=== PATIENT | female | born 2005 | race Two or more races ===

== ENCOUNTER 2024-03-18 21:25 | Day surgery (SDC) | payer OTHER, SELFPAY ==
[~2024-03-18] VITALS: Ht 177.8 cm; Wt 107.2 kg
[2024-03-18 22:24] LABS: BASO % 0.4 % (0.0-1.0); EOS # 0.2 10^3/uL (0.0-0.5); EOS % 2.3 % (0.0-3.0); HEMOGLOBIN 12.9 g/dl (12.0-15.5); LYMPH # 3.1 10^3/uL (1.5-5.0); LYMPH % 43.6 % (24.0-44.0); MEAN CORPUSCULAR HEMOGLOBIN 30.4 pg (27.0-33.0); MEAN CORPUSCULAR HGB CONC 33.9 g/dl (32.0-36.5); MEAN CORPUSCULAR VOLUME 89.6 fl (80.0-96.0); MONO # 0.5 10^3/uL (0.0-0.8); MONO % 6.7 % (2.0-8.0); NEUTROPHILS # 3.3 10^3/uL (1.5-8.5); NEUTROPHILS % 46.7 % (36.0-66.0); PLATELET COUNT, AUTOMATED 293 10^3/uL (150-450); RED BLOOD COUNT 4.24 10^6/uL (4.00-5.40)
[2024-03-18 22:44] LABS: LIPASE 31 U/L (12-53)
[2024-03-18 22:46] LABS: ALBUMIN 3.8 G/DL (3.2-5.2); ALKALINE PHOSPHATASE 98 U/L (46-116); ALT/SGPT 73 U/L (7.0-40); AST/SGOT 39 U/L (<34); BILIRUBIN,DIRECT < 0.1 MG/DL (<0.4); BILIRUBIN,TOTAL 0.2 MG/DL (0.3-1.2); BLOOD UREA NITROGEN 19 MG/DL (9-23); CALCIUM LEVEL 9.3 MG/DL (8.5-10.1); CARBON DIOXIDE LEVEL 28 MMOL/L (20-31); CHLORIDE LEVEL 106 MMOL/L (98-107); CPK CREATINE PHOSPHOKINASE 1273 U/L (34-145); CREATININE FOR GFR 0.83 MG/DL (0.55-1.30); GLUCOSE, FASTING 145 MG/DL (60-100); SODIUM LEVEL 136 MMOL/L (136-145); TOTAL PROTEIN 7.4 G/DL (5.7-8.2)
[2024-03-18 22:47] LABS: CK-MB VALUE MASS < 1.0 NG/ML (<3.6); HCG, SERUM QUALITATIVE NEGATIVE (NEGATIVE); MB/CK RELATIVE INDEX 0.07 (< OR =4)
[2024-03-19 00:05] LABS: CK-MB VALUE MASS < 1.0 NG/ML (<3.6)
[2024-03-19 00:38] LABS: CPK CREATINE PHOSPHOKINASE 1269 U/L (34-145); MB/CK RELATIVE INDEX 0.07 (< OR =4)
[2024-03-19 01:39] LABS: ERYTHROCYTE SEDIMENTATION RATE 23 mm/hr (0-20)
[2024-03-19] MEDS: FAMOTIDINE IV BAG 20 MG in IV 1 EA IV ONE (01:48)
[2024-03-19] MEDS: ACETAMINOPHEN *IV* 1,000 MG in IV 1 EA IV ONE (01:48)
[2024-03-19] MEDS: LR 1,000 ML IV ONE (01:49)
[2024-03-19] MEDS ORDERED: IBUP-1720 PO (06:04)
[2024-03-19] MEDS ORDERED: ACET650T15 PO (06:04)
[2024-03-19] MEDS ORDERED: HOME MED LIST COMPLETE! XX SCH (06:05)
[2024-03-19 08:50] LABS: BASO # 0.1 10^3/uL (0.0-0.2); BASO % 0.7 % (0.0-1.0); EOS # 0.2 10^3/uL (0.0-0.5); EOS % 2.7 % (0.0-3.0); HEMATOCRIT 36.6 % (36.0-47.0); HEMOGLOBIN 12.3 g/dl (12.0-15.5); LYMPH # 2.7 10^3/uL (1.5-5.0); LYMPH % 39.2 % (24.0-44.0); MEAN CORPUSCULAR HEMOGLOBIN 30.3 pg (27.0-33.0); MEAN CORPUSCULAR HGB CONC 33.6 g/dl (32.0-36.5); MEAN CORPUSCULAR VOLUME 90.1 fl (80.0-96.0); MONO # 0.4 10^3/uL (0.0-0.8); MONO % 6.5 % (2.0-8.0); NEUTROPHILS # 3.5 10^3/uL (1.5-8.5); NEUTROPHILS % 50.8 % (36.0-66.0); PLATELET COUNT, AUTOMATED 273 10^3/uL (150-450); RED BLOOD COUNT 4.06 10^6/uL (4.00-5.40); WHITE BLOOD COUNT 6.8 10^3/uL (4.0-10.0)
[2024-03-19 09:10] LABS: ERYTHROCYTE SEDIMENTATION RATE 13 mm/hr (0-20)
[2024-03-19 09:17] LABS: C REACTIVE PROTEIN QUANTITATIV < 0.40 MG/DL (<1.0)
[2024-03-19 09:19] LABS: ALBUMIN 3.6 G/DL (3.2-5.2); ALKALINE PHOSPHATASE 82 U/L (46-116); ALT/SGPT 69 U/L (7.0-40); AST/SGOT 48 U/L (<34); BILIRUBIN,TOTAL 0.2 MG/DL (0.3-1.2); BLOOD UREA NITROGEN 14 MG/DL (9-23); CALCIUM LEVEL 9.3 MG/DL (8.5-10.1); CARBON DIOXIDE LEVEL 25 MMOL/L (20-31); CHLORIDE LEVEL 111 MMOL/L (98-107); CREATININE FOR GFR 0.75 MG/DL (0.55-1.30); GLUCOSE, FASTING 113 MG/DL (60-100); POTASSIUM SERUM 4.8 MMOL/L (3.5-5.1); SODIUM LEVEL 139 MMOL/L (136-145); TOTAL PROTEIN 6.9 G/DL (5.7-8.2)
[2024-03-19] MEDS: KETOROLAC 30 MG/ML 1ML VIAL IV ONE (11:10)
[2024-03-19] MEDS ORDERED: propofoL 200 MG/20 ML VIAL As Ordered ONE (11:28)
[2024-03-19] MEDS ORDERED: LIDOCAINE 2% 100MG/5ML SDV (FOR ANES.) As Ordered ONE (11:29)
[2024-03-19] MEDS ORDERED: KETOROLAC 60MG 2ML VIAL As Ordered ONE (11:29)
[2024-03-19] MEDS ORDERED: SUGAMMADEX SODIUM 500 MG/5 ML VIAL (BRIDION) As Ordered ONE (11:29)
[2024-03-19] MEDS ORDERED: ONDANSETRON 4MG 2ML VIAL As Ordered ONE (11:29)
[2024-03-19] MEDS ORDERED: ROCURONIUM BROMIDE 50MG/5ML VIAL As Ordered ONE (11:29)
[2024-03-19] MEDS ORDERED: ACETAMINOPHEN 1000MG 100ML IV BAG As Ordered ONE (11:29)
[2024-03-19] MEDS ORDERED: fentaNYL 100 MCG/2 ML INJECTION As Ordered ONE (11:30)
[2024-03-19] MEDS ORDERED: MIDAZOLAM INJ 2MG/2ML VIAL As Ordered ONE (11:30)
[2024-03-19] MEDS ORDERED: ceFAZolin SOD 1 GM in D5W MINI-BAG PLUS 50 ML IV SCH (16:00)
[2024-03-19] MEDS ORDERED: INDOCYANINE GREEN 25MG VIAL (IC-GREEN) As Ordered ONE (17:05)
[2024-03-19] MEDS ORDERED: PHENYLephrine 500MCG 5ML (100MCG/ML) SYRINGE As Ordered ONE (17:25)
[2024-03-19] MEDS: ceFAZolin 2 GM/D5W 50 ML IV BAG As Ordered ONE (17:29)
[2024-03-19] MEDS ORDERED: dexmedeTOMIDine (4MCG/ML)200MCG/50ML BTL (PRECEDEX) As Ordered ONE (17:53)
[2024-03-19] MEDS: LIDOCAINE 1% SDV 30ML VIAL As Ordered ONE (18:23)
[2024-03-19] MEDS ORDERED: MORPHINE 2 MG/ML 1ML VIAL IV PRN (18:45)
[2024-03-19] MEDS ORDERED: fentaNYL 100 MCG/2 ML INJECTION IV PRN (18:45)
[2024-03-19] MEDS: KETOROLAC 30 MG/ML 1ML VIAL IV SCH (19:00)
[2024-03-19] MEDS: HYDROMORPHONE HCL 0.5 MG/ 0.5 ML SYRINGE IV PRN (19:14)
[2024-03-19] MEDS: PROMETHAZINE 25MG/ML 1ML VIAL IV PRN (19:20)
[2024-03-19 20:10] VITALS: BP 117/63; TEMP 97.7; O2SAT 97
[2024-03-19] MEDS: PANTOPRAZOLE 40MG VIAL IV SCH (20:31)
[2024-03-19] MEDS: PERCOCET 5MG/325MG TAB PO PRN (20:32)
[2024-03-19 20:40] VITALS: BP 109/59; TEMP 97.3; O2SAT 96
[2024-03-19 21:10] VITALS: BP 103/59; TEMP 97.6; O2SAT 95
[2024-03-19 22:00] VITALS: BP 100/54; TEMP 97.3; O2SAT 97
[2024-03-19 23:00] VITALS: BP 101/55; TEMP 97.3; O2SAT 93
[2024-03-20] VITALS: BP 110/55; TEMP 97.3; O2SAT 93
[2024-03-20 00:56] VITALS: BP 117/57; TEMP 98.2; O2SAT 97
[2024-03-20] MEDS ORDERED: ceFAZolin SOD 1 GM in D5W MINI-BAG PLUS 50 ML IV SCH (02:00)
[2024-03-20 05:10] VITALS: BP 100/56; TEMP 98.2; O2SAT 96
[2024-03-20 06:59] LABS: BASO % 0.2 % (0.0-1.0); EOS % 0.1 % (0.0-3.0); HEMATOCRIT 34.4 % (36.0-47.0); HEMOGLOBIN 11.4 g/dl (12.0-15.5); MEAN CORPUSCULAR HEMOGLOBIN 29.5 pg (27.0-33.0); MEAN CORPUSCULAR HGB CONC 33.1 g/dl (32.0-36.5); MEAN CORPUSCULAR VOLUME 89.1 fl (80.0-96.0); MONO # 0.3 10^3/uL (0.0-0.8); MONO % 4.2 % (2.0-8.0); NEUTROPHILS # 5.8 10^3/uL (1.5-8.5); NEUTROPHILS % 71.1 % (36.0-66.0); PLATELET COUNT, AUTOMATED 284 10^3/uL (150-450); RED BLOOD COUNT 3.86 10^6/uL (4.00-5.40); WHITE BLOOD COUNT 8.1 10^3/uL (4.0-10.0)
[2024-03-20 07:17] LABS: CPK CREATINE PHOSPHOKINASE 779 U/L (34-145)
[2024-03-20 07:18] LABS: ALBUMIN 3.2 G/DL (3.2-5.2); ALKALINE PHOSPHATASE 69 U/L (46-116); ALT/SGPT 73 U/L (7.0-40); AST/SGOT 46 U/L (<34); BILIRUBIN,TOTAL 0.4 MG/DL (0.3-1.2); BLOOD UREA NITROGEN 13 MG/DL (9-23); CALCIUM LEVEL 8.8 MG/DL (8.5-10.1); CARBON DIOXIDE LEVEL 25 MMOL/L (20-31); CHLORIDE LEVEL 109 MMOL/L (98-107); CREATININE FOR GFR 0.76 MG/DL (0.55-1.30); GLUCOSE, FASTING 103 MG/DL (60-100); POTASSIUM SERUM 4.1 MMOL/L (3.5-5.1); SODIUM LEVEL 139 MMOL/L (136-145); TOTAL PROTEIN 6.4 G/DL (5.7-8.2)
[2024-03-20] MEDS: SIMETHICONE 80MG CHEW TAB PO PRN (07:41)
[2024-03-20 08:00] VITALS: BP 109/54; TEMP 98.7; O2SAT 97
[2024-03-20 12:00] VITALS: BP 98/54; TEMP 98.6; O2SAT 96
[2024-03-20] MEDS ORDERED: OMEP40CA4 PO (12:19)
[2024-03-20] MEDS ORDERED: PERCOCET PO (12:19)
[2024-03-20 15:40] VITALS: BP 98/55; TEMP 98.1; O2SAT 97
[2024-03-20] MEDS: PERCOCET 5MG/325MG TAB PO PRN (16:02)
== END 2024-03-20 17:45 | disposition home or self-care (01) ==
LOC: M ED 21:25 → M SDC 03-19 15:56 → M PED 03-19 20:10 → M SDC 03-20 17:45
PROVIDERS: ATTEND Surgery
DX: K81.1 Chronic cholecystitis (principal); K76.0 Fatty (change of) liver, not elsewhere classified; R16.0 Hepatomegaly, not elsewhere classified; E28.2 Polycystic ovarian syndrome; E66.9 Obesity, unspecified; Z83.79 Family history of other diseases of the digestive system
CPT/HCPCS: 36415; 47563; 64488; 71045; 76705; 80048; 80053; 80076; 82550; 82553; 83690; 84484; 84703; 85025; 85652; 86140; 88304; 93005; 96365; 96367; 96375; 96376; 99284; J0131; J0665; J0690; J1100; J1170; J1885; J2250; J2371; J2405; J2470; J2550; J3010; Q9968; S0028; S2900

== ENCOUNTER 2024-11-30 19:34 | Inpatient (IN) | payer OTHER ==
[~2024-11-30] VITALS: Ht 177.8 cm; Wt 109.1 kg
[~2024-11-30 19:34] MED LIST: ACET650T15 PO; IBUP-1720 PO; OMEP40CA4 PO; PERCOCET PO
[2024-11-30] MEDS: NS (Normal Saline) 0.9% 1,000 ML IV SCH (19:55)
[2024-11-30] MEDS: CHARCOAL ACTIVATED LIQUID 25GM/120ML BTL PO ONE (19:59)
[2024-11-30 20:21] LABS: HEMATOCRIT 38.2 % (36.0-47.0); HEMOGLOBIN 13.3 g/dl (12.0-15.5); MEAN CORPUSCULAR HEMOGLOBIN 31.2 pg (27.0-33.0); MEAN CORPUSCULAR HGB CONC 34.8 g/dl (32.0-36.5); MEAN CORPUSCULAR VOLUME 89.7 fl (80.0-96.0); PLATELET COUNT, AUTOMATED 296 10^3/uL (150-450); RED BLOOD COUNT 4.26 10^6/uL (4.00-5.40); WHITE BLOOD COUNT 6.7 10^3/uL (4.0-10.0)
[2024-11-30 20:45] LABS: ETHYL ALCOHOL (ETHANOL) < 0.003 % (0.000-0.010)
[2024-11-30 20:46] LABS: SALICYLATE LEVEL < 3.0 MG/DL (<30)
[2024-11-30 20:47] LABS: ALBUMIN 3.8 G/DL (3.2-5.2); ALKALINE PHOSPHATASE 99 U/L (35-104); ALT/SGPT 58 U/L (7.0-40); AST/SGOT 23 U/L (<34); BILIRUBIN,DIRECT < 0.1 MG/DL (<0.4); BILIRUBIN,TOTAL 0.2 MG/DL (0.3-1.2); BLOOD UREA NITROGEN 11 MG/DL (9-23); CALCIUM LEVEL 9.1 MG/DL (8.5-10.1); CARBON DIOXIDE LEVEL 25 MMOL/L (20-31); CHLORIDE LEVEL 107 MMOL/L (98-107); CREATININE FOR GFR 0.75 MG/DL (0.55-1.30); GLOMERULAR FILTRATION RATE > 90.0 (>60); GLUCOSE, FASTING 207 MG/DL (60-100); POTASSIUM SERUM 4.1 MMOL/L (3.5-5.1); SODIUM LEVEL 141 MMOL/L (136-145); TOTAL PROTEIN 7.2 G/DL (5.7-8.2)
[2024-11-30 20:49] LABS: THYROID STIMULATING HORMONE 1.279 uIU/ML (0.48-4.17)
[2024-11-30 20:56] LABS: AMPHETAMINES LEVEL URINE NEGATIVE (NEGATIVE); BARBITURATES URINE NEGATIVE (NEGATIVE); BENZODIAZEPINES URINE NEGATIVE (NEGATIVE); CANNABINOIDS URINE NEGATIVE (NEGATIVE); COCAINE METABOLITE URINE NEGATIVE (NEGATIVE); METHADONE URINE NEGATIVE (NEGATIVE); OPIATES URINE NEGATIVE (NEGATIVE); PHENCYCLIDINE URINE NEGATIVE (NEGATIVE)
[2024-11-30 21:11] LABS: HCG, SERUM QUALITATIVE NEGATIVE (NEGATIVE)
[2024-11-30] MEDS: NS (Normal Saline) 0.9% 1,000 ML IV ONE (23:57)
[2024-12-01] MEDS ORDERED: AMIT25TA19 PO (08:04)
[2024-12-01] MEDS ORDERED: OMEP40CA4 PO (08:04)
[2024-12-01] MEDS ORDERED: HOME MED LIST COMPLETE! XX SCH (08:05)
[2024-12-01] MEDS ORDERED: MOM 30ML SUSPENSION UDC PO PRN (13:55)
[2024-12-01] MEDS ORDERED: traZODone 50 MG TAB PO PRN (13:55)
[2024-12-01] MEDS ORDERED: diphenhydrAMINE 25MG CAP PO PRN (13:55)
[2024-12-01] MEDS ORDERED: MAALOX 30 ML SUSP *UDC PO PRN (13:55)
[2024-12-01] MEDS ORDERED: ACETAMINOPHEN 325 MG TAB PO PRN (13:55)
[2024-12-01 14:45] VITALS: BP 113/73; TEMP 98.2; O2SAT 100
[2024-12-02 07:01] VITALS: BP 117/65; TEMP 96.5; O2SAT 98
[2024-12-02 08:27] LABS: HEMOGLOBIN A1c 5.7 % (4.0-6.0)
[2024-12-02] MEDS: OMEPRAZOLE 20MG CAP PO SCH (09:00)
[2024-12-02] MEDS: FLUoxetine 20MG CAP PO SCH (09:00)
[2024-12-02 17:32] VITALS: BP 115/73; TEMP 98.2; O2SAT 98
[2024-12-03 06:36] VITALS: BP 117/56; TEMP 97.6; O2SAT 100
[2024-12-03] MEDS: IBUPROFEN 400MG TAB PO PRN (09:12)
[2024-12-03 09:17] VITALS: BP 133/71
[2024-12-04 06:43] VITALS: BP 127/68; TEMP 98.3; O2SAT 100
[2024-12-04] MEDS ORDERED: TRAZ-252 PO (10:05)
[2024-12-04] MEDS ORDERED: OMEP-173 PO (10:05)
[2024-12-04] MEDS ORDERED: FLUO-365 PO (10:05)
== END 2024-12-04 10:51 | disposition home or self-care (01) | DRG 881 ==
LOC: EDBD 19:34 → M ED 19:34 → M ED INP 12-01 13:55 → M PSY 12-01 14:27
PROVIDERS: ADMIT Student in an Organized Health Care Education/Training Program; ATTEND Student in an Organized Health Care Education/Training Program
DX: F32.9 Major depressive disorder, single episode, unspecified (principal); R45.851 Suicidal ideations; R73.03 Prediabetes; E66.9 Obesity, unspecified; E28.2 Polycystic ovarian syndrome; Z79.899 Other long term (current) drug therapy; Z91.51 Personal history of suicidal behavior; Z63.8 Other specified problems related to primary support group

== ENCOUNTER 2025-01-30 14:06 | Emergency (ER) | payer OTHER ==
[~2025-01-30] VITALS: Ht 177.8 cm; Wt 115.1 kg
[~2025-01-30 14:06] MED LIST changes: +AMIT25TA19 PO; +FLUO-365 PO; +OMEP-173 PO; +TRAZ-252 PO
[2025-01-30] MEDS: NS (Normal Saline) 0.9% 1,000 ML IV ONE (19:52)
[2025-01-30] MEDS: KETOROLAC 30 MG/ML 1 ML VIAL IV ONE (19:52)
[2025-01-30 21:17] VITALS: BP 115/68; TEMP 97; O2SAT 99
== END 2025-01-30 21:44 | disposition home or self-care (01) ==
LOC: M ED 14:06
DX: G43.909 Migraine, unspecified, not intractable, without status migrainosus (principal); E11.9 Type 2 diabetes mellitus without complications; E28.2 Polycystic ovarian syndrome; Z79.899 Other long term (current) drug therapy
CPT/HCPCS: 70450; 96361; 96374; 99284; J1885; J2765

== ENCOUNTER → 2025-03-21 | Outpatient (CLI) | payer OTHER ==
[~2025-03-21] MED LIST changes: +ACET-1515 PO; -ACET650T15 PO
[2025-03-21 14:24] LABS: CORTISOL AM 12.7 UG/DL (4.3-22.4)
[2025-03-21 14:33] LABS: ALT/SGPT 90 U/L (7.0-40); AST/SGOT 35 U/L (<34); CALCIUM LEVEL 9.0 MG/DL (8.5-10.1); CARBON DIOXIDE LEVEL 24 MMOL/L (20-31); CHLORIDE LEVEL 106 MMOL/L (98-107); CHOLESTEROL LEVEL 206 MG/DL (<200); CHOLESTEROL RISK RATIO 4.54 (<5); CREATININE FOR GFR 0.72 MG/DL (0.55-1.30); FREE T4 1.05 NG/DL (0.83-1.43); GLOMERULAR FILTRATION RATE > 90.0 (>60); LUTEINIZING HORMONE 7.0 mIU/ML; NON-HDL-C 160.7 MG/DL; POTASSIUM SERUM 4.6 MMOL/L (3.5-5.1); SODIUM LEVEL 140 MMOL/L (136-145); TRIGLYCERIDES LEVEL 407 MG/DL (<150)
[2025-03-21 14:34] LABS: TESTOSTERONE 35 NG/DL (14-76)
[2025-03-23 01:23] LABS: DEHYDROEPIANDROSTERONE SULFATE 215 mcg/dL (44-286)
[2025-03-24 09:27] LABS: INSULIN LEVEL 113.4 uIU/mL (<=18.4)
== END ==
LOC: M PLALAB 08:34
PROVIDERS: ATTEND Nurse Practitioner Family
DX: E28.2 Polycystic ovarian syndrome (principal)

== ENCOUNTER 2025-04-28 18:41 | Emergency (ER) | payer OTHER ==
[~2025-04-28] VITALS: Ht 177.8 cm; Wt 117.6 kg
[2025-04-28] MEDS ORDERED: RIME75TA (18:49)
[2025-04-28] MEDS ORDERED: ZIPR20CA13 (18:49)
[2025-04-28] MEDS ORDERED: LAMO-18 (18:49)
[2025-04-28] MEDS ORDERED: SEMA0.252 (18:49)
[2025-04-28 20:38] VITALS: BP 114/67; TEMP 99.4; O2SAT 98
== END 2025-04-28 20:40 | disposition home or self-care (01) ==
LOC: M ED 18:41
DX: S80.11XA Contusion of right lower leg, initial encounter (principal); Y92.019 Unspecified place in single-family (private) house as the place of occurrence of the external cause; Y93.9 Activity, unspecified; Y99.9 Unspecified external cause status; W01.0XXA Fall on same level from slipping, tripping and stumbling without subsequent striking against object, initial encounter; E28.2 Polycystic ovarian syndrome; Z79.899 Other long term (current) drug therapy; Z79.4 Long term (current) use of insulin

== ENCOUNTER 2025-07-02 19:52 | Emergency (ER) | payer OTHER ==
[~2025-07-02] VITALS: Ht 177.8 cm; Wt 113.8 kg
[~2025-07-02 19:52] MED LIST changes: +LAMO-18; +RIME75TA; +SEMA0.252; +ZIPR20CA13
[2025-07-02 20:29] LABS: BASO # 0.0 10^3/uL (0.0-0.2); BASO % 0.3 % (0.0-1.0); EOS # 0.3 10^3/uL (0.0-0.5); EOS % 2.9 % (0.0-3.0); LYMPH # 3.7 10^3/uL (1.5-5.0); LYMPH % 40.2 % (24.0-44.0); MONO # 0.4 10^3/uL (0.0-0.8); MONO % 4.2 % (2.0-8.0); NEUTROPHILS # 4.8 10^3/uL (1.5-8.5); NEUTROPHILS % 52.3 % (36.0-66.0); PLATELET COUNT, AUTOMATED 342 10^3/uL (150-450)
[2025-07-02 21:01] LABS: ALT/SGPT 116 U/L (7.0-40); AST/SGOT 48 U/L (<34); CALCIUM LEVEL 9.5 MG/DL (8.5-10.1); CARBON DIOXIDE LEVEL 26 MMOL/L (20-31); CHLORIDE LEVEL 104 MMOL/L (98-107); CREATININE FOR GFR 1.04 MG/DL (0.55-1.30); GLOMERULAR FILTRATION RATE 78.9 (>60); POTASSIUM SERUM 4.2 MMOL/L (3.5-5.1); SODIUM LEVEL 142 MMOL/L (136-145)
[2025-07-02 21:18] LABS: HCG, SERUM QUALITATIVE NEGATIVE (NEGATIVE)
[2025-07-02] MEDS ORDERED: ISOVUE-370 76% 100 ML VIAL As Ordered ONE (23:03)
[2025-07-02] MEDS: NS (Normal Saline) 0.9% 1,000 ML IV ONE (23:17)
[2025-07-02] MEDS: KETOROLAC 30 MG/ML 1 ML VIAL IV ONE (23:18)
[2025-07-03] MEDS: ONDANSETRON 4MG/2ML VIAL IV ONE (01:45)
[2025-07-03 01:49] VITALS: BP 122/78; TEMP 97.1; O2SAT 97
== END 2025-07-03 02:50 | disposition home or self-care (01) ==
LOC: M ED 19:52
DX: K52.9 Noninfective gastroenteritis and colitis, unspecified (principal); Z79.4 Long term (current) use of insulin; Z79.899 Other long term (current) drug therapy
CPT/HCPCS: 74177; 80048; 80076; 83690; 84703; 85025; 87486; 87507; 87581; 87633; 87798; 96361; 96374; 96375; 99284; J1885; J2405; J2550; Q9967